=== PATIENT | male | born 1985 | race Caucasian/White ===

== ENCOUNTER 2017-03-02 13:18 | Emergency (ER) | payer OTHER ==
[2017-03-02 13:35] VITALS: O2SAT 96
[2017-03-02] MEDS ORDERED: ACETAMINOPHEN 325 MG TAB PO ONE (14:52)
[2017-03-02] MEDS ORDERED: IBUPROFEN 600 MG TAB PO ONE (14:52)
--- NOTE | 2017-03-02 15:30 | UCPHY ---
H & P Time Seen by Provider: 03/02/17 14:51 Patient Type: New HPI/ROS: This patient complains of back pain-left paraspinous midback for that 2 days prior to arrival that came on spontaneously but worsens with movement. He has a feeling of muscle spasm associated with this. The pain does not radiate. He has not had this pain before. He has some type of topical cream without significant improvement in the symptoms and denies any other exacerbating factors. The patient has the impression that sitting near a Oxynade 7 point ROS is otherwise negative. with cold air blowing and may have contributed to the onset of his back pain. At times the pain is severe up to 9/10 currently it is moderate. Please note the patient speaks [place] - history is limited due to this, but residence director service provides translation. He is accompanied by his who knows some anguish and also assists. ROS: No HEENT complaints. Pulmonary: No shortness of breath. No chest pain. GI: No belly pain. : No hematuria neuro: No numbness tingling or weakness. Past Medical/Surgical History: Otherwise healthy Smoking Status: Current every day smoker Physical Exam: Physical Exam Vital signs are normal. General: Pleasant young male No acute distress HEENT: Atraumatic. Eyes: Pupils equal and react to light. Extraocular motions are intact. Lungs: Clear to auscultation bilaterally. No respiratory distress. Cardiac: Regular rate and rhythm with murmur gallop rub. Lower extremities appear well perfused. Abdomen: Soft, nontender Back: Patient has no midline tenderness. He has left upper lumbar/lower thoracic paraspinous muscle tenderness and spasm. Straight leg raise is negative bilaterally. He has increased pain with forward flexion and some limitation range of motion due to this. No difficulty with back extension or lateral flexion. Skin: No rash or pallor. Neuro: Alert, he maintains 2+ symmetric patellar and Achilles DTRs bilaterally. He has 5/5 strength in great toe dorsiflexion and plantar flexion bilaterally -no sensorimotor deficits are appreciated. Initial differential diagnosis: Back strain, disc herniation, bony abnormality Constitutional: Initial Vital Signs Temperature (C) 37.1 C 03/02/17 13:32 Heart Rate 88 03/02/17 13:32 Respiratory Rate 18 03/02/17 13:32 Blood Pressure 122/81 H 03/02/17 13:32 O2 Sat (%) 96 03/02/17 13:32 O2 Delivery Mode Room Air Allergies/Adverse Reactions: No Known Allergies Allergy (Unverified 03/02/17 13:32) Home Medications: Medication Instructions Recorded Ibuprofen [Motrin (*)] 600 mg PO Q6 PRN #30 tab 03/02/17 Methocarbamol [Robaxin 750 mg (*)] 750 - 1,500 mg PO QID PRN #30 tab 03/02/17 MDM/Departure - MDM Diagnostics: Lumbar spine x-ray: Normal by my interpretation Medications Given: Discontinued Medications Acetaminophen (Tylenol) 975 mg PO EDNOW ONE Stop: 03/02/17 14:53 Last Admin: 03/02/17 14:56 Dose: 975 mg Ibuprofen (Motrin) 600 mg PO EDNOW ONE Stop: 03/02/17 14:53 Last Admin: 03/02/17 14:55 Dose: 600 mg ED Course/Re-evaluation: Counseled the patient regarding back strain and demonstrated stretches that may be beneficial. His discharge after ibuprofen Tylenol with Plan start methocarbamol muscle relaxant in addition to the ibuprofen He is provided an outpatient follow-up with Dr. Mike who is the outpatient physician on-call as he needs a primary care physician locally - Depart Disposition: Home, Routine, Self-Care Clinical Impression: Low back strain Qualifiers: Encounter type: initial encounter Qualified Code(s): S39.012A - Strain of muscle, fascia and tendon of lower back, initial encounter Condition: Good Instructions: Low Back Strain (ED) Additional Instructions: DX: Low back strain Plan: Ibuprofen 400-600 mg per 6 hours regularly for the next week then as needed. Tylenol and Methocarbamol muscle relaxant in addition as needed. No driving alcohol or work on methocarbamol Starts daily stretches prior to taking muscle relaxant in the morning. 3-5 minutes each of: "Butterfly stretch," "Sphinx stretch", and hamstring stretch. Avoid lifting more than 5-10 pounds until symptoms improve. Call your primary care physician for a followup appointment in 3-7 days. Go to the emergency department for worsening of your symptoms despite the treatment plan. Prescriptions: Ibuprofen [Motrin (*)] 600 mg PO Q6 PRN #30 tab PRN Reason: Pain Methocarbamol [Robaxin 750 mg (*)] 750 - 1,500 mg PO QID PRN #30 tab PRN Reason: Muscle Spasms Referrals: NONE *PRIMARY CARE P,. [Primary Care Provider] - As per Instructions Nia Donaldson MD [Medical Doctor] - As per Instructions - PQRS PQRS Measurement: NA
[2017-03-02 15:58] VITALS: BP 126/80; PULSE 81; RESP 16; TEMP 98.6
== END 2017-03-02 15:47 | disposition home or self-care (01) ==
LOC: CED 13:18
DX: S39.012A Strain of muscle, fascia and tendon of lower back, initial encounter (principal); Z72.0 Tobacco use
CPT/HCPCS: 72100-PO; G0463-PO